=== PATIENT | female | born 1970 | race Hispanic/Latino ===

== ENCOUNTER 2016-08-20 20:21 | Emergency (ER) | payer MEDICARE ==
[2016-08-20 20:26] VITALS: BP 128/78; PULSE 88; RESP 18; TEMP 98.1; O2SAT 99
--- NOTE | 2016-08-20 21:48 | ED PDOC ---
Upper Extremity Pain/Injury Time Seen by Provider: 08/20/16 20:35 Chief Complaint (Nursing): Finger,Hand,&Wrist Chief Complaint (Provider): Right hand injury History Per: Patient History/Exam Limitations: no limitations Current Symptoms Are (Timing): Still Present Additional Complaint(s): Vale Smallwood, a 45 year old female, presents to the ED with an injury to her right hand. The patient states she was at storage unit when she hit her hand on a metal object and bruised her fingers. Past Medical History Reviewed: Historical Data, Nursing Documentation, Vital Signs Vital Signs: Last Vital Signs Temp 98.1 F 08/20/16 20:24 Pulse 88 08/20/16 20:24 Resp 18 08/20/16 20:24 BP 128/78 08/20/16 20:24 Pulse Ox 99 08/20/16 20:24 - Medical History PMH: No Chronic Diseases - Surgical History Surgical History: No Surg Hx - Family History Family History: States: Unknown Family Hx - Social History Current smoker - smoking cessation education provided: No Ex-Smoker (has not smoked in the last 12 months): No Alcohol: None Drugs: Denies - Immunization History Hx Tetanus Toxoid Vaccination: No Hx Influenza Vaccination: No Hx Pneumococcal Vaccination: No - Home Medications Home Medications: Ambulatory Orders Medication Instructions Recorded Ibuprofen [Motrin Tab] 800 mg PO Q6H PRN #20 tab 08/20/16 - Allergies Allergies/Adverse Reactions: Allergies Allergy/AdvReac Type Severity Reaction Status Date / Time codeine AdvReac Verified 08/13/15 17:24 "ALL NARCOTICS" AdvReac Uncoded 08/13/15 17:24 "PAIN KILLERS" AdvReac Uncoded 08/13/15 17:24 Review of Systems Musculoskeletal: Negative for: Hand Pain (Bruising to right hand\\) Physical Exam - Reviewed Nursing Documentation Reviewed: Yes Vital Signs Reviewed: Yes - Physical Exam Appears: Positive for: Non-toxic, No Acute Distress Skin: Positive for: Normal Color, Warm, Dry Eye Exam: Positive for: Normal appearance, EOMI, PERRL Extremity: Positive for: Normal ROM, Tenderness (4th and 5th metacarpal tenderness of the right hand.), Other (Bruising over 4th and 5th metacarpal). Negative for: Pedal Edema, Deformity, Swelling Neurologic/Psych: Positive for: Alert, Oriented, Gait - ECG O2 Sat by Pulse Oximetry: 99 (RA) Pulse Ox Interpretation: Normal Medical Decision Making Medical Decision Makin Initial Impression: 45 year old female presenting with a right hand injury Initial Plan: * Radiology Right Hand * Reevaluation X-ray: mildly displaced fracture of distal 5th metacarpal. Scribe Attestation Documented by Aliza Griffin acting as a scribe for Kinsey Norwood PA-C. Scribe Attestation All medical record entries made by the Scribe were at my direction and personally dictated by me. I have reviewed the chart and agree that the record accurately reflects my personal performance of the history, physical exam, medical decision making, and the department course for this patient. I have also personally directed, reviewed, and agree with the discharge instructions and disposition. Disposition - Clinical Impression Clinical Impression: Metacarpal bone fracture - Patient ED Disposition Is Patient to be Admitted: No Counseled Patient/Family Regarding: Diagnosis, Need For Followup, Rx Given - Disposition Referrals: [facility] [Outside] Disposition: Routine/Home Disposition Time: 22:44 Condition: GOOD Additional Instructions: Please follow-up with orthopedics. Prescriptions: Ibuprofen [Motrin Tab] 800 mg PO Q6H PRN #20 tab PRN Reason: Pain Instructions: Boxer Fracture (ED)
--- NOTE | 2016-08-21 14:14 | RAD ---
PROCEDURE: Right hand dated 08/20/2016 HISTORY: right hand injury COMPARISON: None. FINDINGS: BONES: Current study reveals a boxer fracture of the right 5th meta carpal with mild palmar and radial angulation of the distal fragment. There is mild overlying dorsal and ulnar soft tissue swelling. No other fractures are identified. JOINTS: Joint spaces preserved with no significant osteoarthritis. SOFT TISSUES: As above. No radiopaque foreign bodies OTHER FINDINGS: None. IMPRESSION: Boxer fracture right 5th metacarpal as above
== END 2016-08-20 23:03 | disposition home or self-care (01) ==
LOC: H.ER 20:21
DX: S62.306A Unspecified fracture of fifth metacarpal bone, right hand, initial encounter for closed fracture (principal); W22.8XXA Striking against or struck by other objects, initial encounter; Y92.89 Other specified places as the place of occurrence of the external cause

== ENCOUNTER 2016-08-22 19:38 | Emergency (ER) | payer MEDICARE ==
[2016-08-22 19:47] VITALS: BP 124/61; PULSE 90; RESP 17; TEMP 98.1; O2SAT 99
--- NOTE | 2016-08-22 20:59 | ED PDOC ---
Upper Extremity Pain/Injury Time Seen by Provider: 08/22/16 20:03 Chief Complaint (Nursing): Finger,Hand,&Wrist Chief Complaint (Provider): Right hand pain History Per: Patient History/Exam Limitations: no limitations Onset/Duration Of Symptoms: Days (2) Current Symptoms Are (Timing): Still Present Severity: Moderate Exacerbating Factor(s): Strenuous Use Of Affected Area Additional History Per: Patient Additional Complaint(s): The patient is a 45yo female, presents to ED for evaluation of right hand pain. Pt reports 2 days ago, she was diagnosed with a right boxer fracture and a splint was placed; states she is unable to keep the splint on as she is currently homeless and has to carry her belongings. Pt reports she removed the splint and noticed that her right hand was swollen and bruised; she denies putting her splint back on since then. Further reports she has a ring on her right 4th digit that she has had on for 10+ years and has not removed it. Pt with no other medical complaints. Against Medical Advice - AMA Patient Left Against Medical Advice: The patient declines admission to the hospital and wishes to leave the Emergency Department. This action is against my medical advice. This decision was made with informed refusal. The patient was told that admission to the hospital is necessary. Explanation of the reasons why were discussed. The risks of leaving were explained to the patient and include, but are not limited to, worsening of known or currently unknown conditions, permanent disability and from undiagnosed or untreated conditions. The patient has the capacity to make this informed decision and understands my explanation of the current medical problem and risks of leaving. The patient voluntarily accepts these risks and signed an AMA form documenting our conversation. The patient was given the opportunity to ask questions and reconsider. The patient was encouraged to return to the Emergency Department at any time for further care. Past Medical History Reviewed: Historical Data, Nursing Documentation, Vital Signs Vital Signs: Last Vital Signs Temp 98.1 F 08/22/16 19:44 Pulse 90 08/22/16 19:44 Resp 17 08/22/16 19:44 BP 124/61 08/22/16 19:44 Pulse Ox 99 08/22/16 19:44 - Medical History PMH: No Chronic Diseases - Family History Family History: States: Unknown Family Hx - Immunization History Hx Tetanus Toxoid Vaccination: No Hx Influenza Vaccination: No Hx Pneumococcal Vaccination: No - Home Medications Home Medications: Ambulatory Orders Medication Instructions Recorded Ibuprofen [Motrin Tab] 800 mg PO Q6H PRN #20 tab 08/20/16 - Allergies Allergies/Adverse Reactions: Allergies Allergy/AdvReac Type Severity Reaction Status Date / Time codeine AdvReac Verified 08/13/15 17:24 "ALL NARCOTICS" AdvReac Uncoded 08/13/15 17:24 "PAIN KILLERS" AdvReac Uncoded 08/13/15 17:24 Review of Systems ROS Statement: Except As Marked, All Systems Reviewed And Found Negative Musculoskeletal: Positive for: Hand Pain (right) Physical Exam - Reviewed Nursing Documentation Reviewed: Yes Vital Signs Reviewed: Yes - Physical Exam Appears: Positive for: Well, Non-toxic, No Acute Distress Head Exam: Positive for: ATRAUMATIC, NORMAL INSPECTION, NORMOCEPHALIC Skin: Positive for: Normal Color. Negative for: Rash Eye Exam: Positive for: Normal appearance Pulses-Radial (L): 2+ Pulses-Radial (R): 2+ Extremity: Positive for: Tenderness (minimal swelling and tendernes son right 5th MCP w/o deformity. distal senses intact.), Capillary Refill (< 2 seconds), Other (distal senses intact). Negative for: Deformity Neurologic/Psych: Positive for: Alert, Oriented. Negative for: Motor/Sensory Deficits - ECG O2 Sat by Pulse Oximetry: 99 (RA) Pulse Ox Interpretation: Normal Medical Decision Making Medical Decision Making: Time: 2014 Impression: Right hand boxer fracture Plan: -- Patient has elected to sign out AMA. Extensive discussion on need for ulnar gutter orthoglass splint was made and patient was informed ring would have to be removed. Patient refused to have ring removed and splint placed. Patient currently with aluminum volar splint with mariajose wrap from previous visit and reports she prefers to have that on. Patient was informed this does not protect or immobilize bone perfectly and is not optimal; can increase risk of malunion of fracture. Pt accepts risks. Aluminum volar splint placed and mariajose wrap placed around splint. Patient encouraged to follow up with [facility] and Orthopedist for further evaluation. Scribe Attestation: Documented by Geri Larry acting as a scribe for LEX Rodgers Provider Attestation: All medical record entries made by the Scribe were at my direction and personally dictated by me. I have reviewed the chart and agree that the record accurately reflects my personal performance of the history, physical exam, medical decision making, and the department course for this patient. I have also personally directed, reviewed, and agree with the discharge instructions and disposition. Disposition - Clinical Impression Clinical Impression: Hand fracture, Left against medical advice - Patient ED Disposition Is Patient to be Admitted: No - Disposition Referrals: [facility] [Outside] [facility] [Outside] Memo Jones MD [Staff Provider] - Disposition: Against Medical Advice Disposition Time: 21:00 Condition: STABLE Additional Instructions: KEEP HAND IMMOBILIZED IN SPLINT FOLLOW UP WITH ORTHOPEDIST TOMORROW WITHOUT FAIL Instructions: Against Medical Advice (ED), Boxer Fracture (ED)
== END 2016-08-22 21:17 | disposition left against medical advice (07) ==
LOC: H.ER 19:38
DX: S62.91XD Unspecified fracture of right hand, subsequent encounter for fracture with routine healing (principal); X58.XXXD Exposure to other specified factors, subsequent encounter; Z59.0 Homelessness; Z91.19 Patient's noncompliance with other medical treatment and regimen

== ENCOUNTER 2016-09-28 00:46 | Emergency (ER) | payer MEDICARE ==
[2016-09-28 01:55] VITALS: RESP 16; TEMP 97.1
--- NOTE | 2016-09-28 02:10 | ED PDOC ---
Lower Extremity Pain/Injury Time Seen by Provider: 09/28/16 01:47 Chief Complaint (Nursing): Lower Extremity Problem/Injury Chief Complaint (Provider): bilateral foot swelling History Per: Patient History/Exam Limitations: no limitations Onset/Duration Of Symptoms: Days Current Symptoms Are (Timing): Still Present Additional History Per: Patient Additional Complaint(s): 45 y/o female, no past medical history, presents with bilateral foot swelling x 3 weeks. Patient states she is homeless, has been doing a lot of walking trying to move things to storage. Patient notes cuts to the bottom of her foot from lack of daily cleaning and notes it painful to walk. Denies fever, nausea/ vomiting, chest pain, shortness of breath, palpitations, calf pain, recent travel. Past Medical History Reviewed: Historical Data, Nursing Documentation, Vital Signs Vital Signs: Last Vital Signs Temp 97.1 F L 09/28/16 01:52 Pulse 70 09/28/16 01:52 Resp 16 09/28/16 01:52 BP 116/71 09/28/16 01:52 Pulse Ox 99 09/28/16 01:52 - Medical History PMH: No Chronic Diseases - Surgical History Surgical History: No Surg Hx - Family History Family History: States: Unknown Family Hx - Living Arrangements Living Arrangements: Alone - Social History Current smoker - smoking cessation education provided: Yes Alcohol: None Drugs: Denies - Immunization History Hx Tetanus Toxoid Vaccination: No Hx Influenza Vaccination: No Hx Pneumococcal Vaccination: No - Home Medications Home Medications: Ambulatory Orders Medication Instructions Recorded No Known Home Med 09/28/16 - Allergies Allergies/Adverse Reactions: Allergies Allergy/AdvReac Type Severity Reaction Status Date / Time codeine AdvReac Verified 08/13/15 17:24 "ALL NARCOTICS" AdvReac Uncoded 08/13/15 17:24 "PAIN KILLERS" AdvReac Uncoded 08/13/15 17:24 Wells Criteria for PE - Wells Criteria for Pulmonary Embolism Clinical Signs and Symptoms of DVT: No P.E is #1 Diagnosis, or Equally Likely: No Heart Rate >100: No Immobilization at least 3 days;Surgery previous 4 weeks: No Previous, objectively diagnosed PE or DVT: No Hemoptysis: No Malignancy w/treatment within 6 months, or palliative: No Total Score: 0 Review of Systems ROS Statement: Except As Marked, All Systems Reviewed And Found Negative Musculoskeletal: Positive for: Foot Pain (/swelling) Physical Exam - Reviewed Nursing Documentation Reviewed: Yes Vital Signs Reviewed: Yes - Physical Exam Appears: Positive for: Well, Non-toxic, No Acute Distress (sleeping) Head Exam: Positive for: ATRAUMATIC, NORMAL INSPECTION, NORMOCEPHALIC Skin: Positive for: Normal Color Eye Exam: Positive for: Normal appearance ENT: Positive for: Normal ENT Inspection Cardiovascular/Chest: Positive for: Regular Rate, Rhythm Respiratory: Positive for: Normal Breath Sounds Gastrointestinal/Abdominal: Positive for: Normal Exam Back: Positive for: Normal Inspection Extremity: Positive for: Normal ROM, Pedal Edema (bilateral, L>R. Dried/cracked feet bilateral plantar feet; no drainage, erythema, or temp change noted. ) Neurologic/Psych: Positive for: Alert, Oriented. Negative for: Motor/Sensory Deficits - Laboratory Results Result Diagrams: 09/28/16 02:21 09/28/16 02:21 - ECG O2 Sat by Pulse Oximetry: 99 - Progress ED Course And Treament: labs Patient feet soaked in NS, betadine Patient educated on findings, discharged with instructions to follow up PMD 2-3 days. Advised elevating legs at rest. Return to ED for worsening/concerning symptoms. Disposition - Clinical Impression Clinical Impression: Lower extremity edema - Patient ED Disposition Is Patient to be Admitted: No Counseled Patient/Family Regarding: Studies Performed, Diagnosis, Need For Followup - Disposition Referrals: [facility] [Outside] Disposition: Routine/Home Disposition Time: 03:45 Condition: GOOD Instructions: Leg Edema (ED)
[2016-09-28] MEDS ORDERED: Povidone Iodine Topical 10% Sol ONE (02:13)
[2016-09-28 02:23] LABS: BASO # 0.1 K/uL (0.0-0.2); BASO % 0.9 % (0.0-2.0); EOS # 0.3 K/uL (0.0-0.7); EOS % 2.8 % (0.0-4.0); HEMOGLOBIN 12.6 g/dL (12.0-16.0); MEAN CELL VOLUME 94.1 fl (81.0-99.0); MEAN CORPUSCULAR HEMOGLOBIN 31.4 pg (27.0-31.0); MEAN CORPUSCULAR HGB CONC 33.3 g/dL (33.0-37.0); MEAN PLATELET VOLUME 6.7 fl (7.2-11.7); MONO # 0.6 K/uL (0.0-0.8); MONO % 5.5 % (0.0-10.0); NEUT # 7.1 K/uL (1.8-7.0); NEUT % 63.8 % (50.0-75.0); RBC 4.01 Mil/uL (3.80-5.20); RED CELL DISTRIBUTION WIDTH 13.5 % (11.5-14.5); WHITE BLOOD COUNT 11.1 K/uL (4.8-10.8)
[2016-09-28] MEDS ORDERED: Povidone Iodine Topical 10% Sol TOP ONE (02:24)
[2016-09-28 02:31] LABS: ALB/GLOB RATIO 1.3 (1.0-2.1); ALBUMIN 3.9 g/dL (3.5-5.0); ALT/SGPT 41 U/L (9-52); AST/SGOT 20 U/L (14-36); BLOOD UREA NITROGEN 20 mg/dl (7-17); GFR AFRICAN-AMERICAN > 60; GFR NON-AFRICAN AMERICAN > 60
[2016-09-28 02:40] LABS: B-TYPE NATRIURETIC PEPTIDE 30.5 pg/ml (0-450)
[2016-09-28 05:23] VITALS: BP 115/75; PULSE 72; O2SAT 98
== END 2016-09-28 05:57 | disposition home or self-care (01) ==
LOC: H.ER 00:46
DX: R60.0 Localized edema (principal); Z59.0 Homelessness; F17.200 Nicotine dependence, unspecified, uncomplicated

== ENCOUNTER 2017-01-23 11:27 | Emergency (ER) | payer MEDICARE ==
--- NOTE | 2017-01-23 11:43 | ED PDOC ---
HPI: General Adult Time Seen by Provider: 01/23/17 11:43 Chief Complaint (Provider): head injury History Per: Patient Additional Complaint(s): 46-year-old female with no past medical history presents to emergency department with headache and back pain status post slip and fall. Patient states she slipped on ice while walking into a storage unit this morning. She felt woozy and believes that she "almost passed out" after head injury. She complains of blurry vision, headache and dizziness upon arrival with slight nausea but no vomiting. Patient also has lower back pain. She has been able to walk since time of fall. Past Medical History Reviewed: Historical Data, Nursing Documentation, Vital Signs Vital Signs: Last Vital Signs Temp 98.1 F 01/23/17 11:44 Pulse 79 01/23/17 11:44 Resp 17 01/23/17 11:44 BP 110/65 01/23/17 11:44 Pulse Ox 96 01/23/17 12:05 - Medical History PMH: No Chronic Diseases - Surgical History Surgical History: No Surg Hx - Family History Family History: States: No Known Family Hx - Living Arrangements Living Arrangements: Alone - Social History Current smoker - smoking cessation education provided: Yes (1/2 ppd) Alcohol: None Drugs: Denies - Home Medications Home Medications: Ambulatory Orders Medication Instructions Recorded No Known Home Med 09/28/16 - Allergies Allergies/Adverse Reactions: Allergies Allergy/AdvReac Type Severity Reaction Status Date / Time codeine AdvReac Verified 08/13/15 17:24 "ALL NARCOTICS" AdvReac Uncoded 08/13/15 17:24 "PAIN KILLERS" AdvReac Uncoded 08/13/15 17:24 Review of Systems ROS Statement: Except As Marked, All Systems Reviewed And Found Negative Musculoskeletal: Positive for: Back Pain, Other (s/p fall) Neurological: Positive for: Other (head injury with no LOC s/p fall) Physical Exam - Reviewed Nursing Documentation Reviewed: Yes Vital Signs Reviewed: Yes - Physical Exam Appears: Positive for: Well, Non-toxic, No Acute Distress Head Exam: Positive for: ATRAUMATIC, NORMAL INSPECTION Skin: Negative for: Rash Eye Exam: Positive for: Normal appearance Neck: Positive for: Normal, Painless ROM Cardiovascular/Chest: Positive for: Regular Rate, Rhythm Respiratory: Positive for: Normal Breath Sounds Back: Positive for: Vertebral Tenderness (Mild tenderness along the midline of the lumbar spine with no step-off, negative bilateral straight leg raise). Negative for: L CVA Tenderness, R CVA Tenderness Extremity: Positive for: Normal ROM Neurologic/Psych: Positive for: Alert, Oriented, Gait (steady) - Laboratory Results Urine POC: Negative - ECG O2 Sat by Pulse Oximetry: 96 Pulse Ox Interpretation: Normal - Other Rad CT head X-Ray: Read By Radiologist X-Ray Interpretation: no acute finding L/S Spine X-ray X-Ray: Interpreted by Me, Viewed By Me X-Ray Interpretation: no fx, no dis Medical Decision Making Medical Decision Makin46 year old female with headache and back pain status post fall Plan: test CT head L/S Spine x-ray PO tylenol Patient is aware of all diagnostic testing results, all questions answered. Advised Tylenol for pain as needed. Patient was instructed to follow-up with her primary doctor or with clinic. Disposition - Clinical Impression Clinical Impression: Back strain, Head injury, Accidental fall - Patient ED Disposition Is Patient to be Admitted: No Counseled Patient/Family Regarding: Studies Performed, Diagnosis, Need For Followup - Disposition Referrals: [facility] [Outside] Disposition: Routine/Home Disposition Time: 14:19 Condition: STABLE Additional Instructions: Take Tylenol as needed for pain. Follow up with primary doctor or with clinic in 2-3 days. Instructions: Head Injury (ED), Back Pain (ED)
[2017-01-23 11:44] VITALS: BMI 21.7
[2017-01-23 11:47] VITALS: BP 110/65; PULSE 79; RESP 17; TEMP 98.1; O2SAT 96
--- NOTE | 2017-01-23 14:22 | CT ---
PROCEDURE: CT HEAD WITHOUT CONTRAST. HISTORY: trauma COMPARISON: None available. TECHNIQUE: Axial computed tomography images were obtained through the head/brain without intravenous contrast. Radiation dose: Total exam DLP = mGy-cm. This CT exam was performed using one or more of the following dose reduction techniques: Automated exposure control, adjustment of the mA and/or kV according to patient size, and/or use of iterative reconstruction technique. FINDINGS: HEMORRHAGE: No intracranial hemorrhage. BRAIN: No mass effect or edema. No atrophy or chronic microvascular ischemic changes. VENTRICLES: Unremarkable. No hydrocephalus. CALVARIUM: Unremarkable. PARANASAL SINUSES: Unremarkable as visualized. No significant inflammatory changes. MASTOID AIR CELLS: Unremarkable as visualized. No inflammatory changes. OTHER FINDINGS: None. IMPRESSION: Normal CT of the Head.
--- NOTE | 2017-01-23 15:48 | RAD ---
PROCEDURE: Radiographs of the Lumbar Spine. HISTORY: trauma COMPARISON: No prior. FINDINGS: BONES: Normal alignment. No listhesis. No fracture. DISC SPACES: Unremarkable. OTHER FINDINGS: None. IMPRESSION: Unremarkable radiographs of the lumbar spine.
== END 2017-01-23 14:51 | disposition home or self-care (01) ==
LOC: H.ER 11:27
DX: S09.90XA Unspecified injury of head, initial encounter (principal); S39.012A Strain of muscle, fascia and tendon of lower back, initial encounter; W01.0XXA Fall on same level from slipping, tripping and stumbling without subsequent striking against object, initial encounter; Y92.89 Other specified places as the place of occurrence of the external cause

== ENCOUNTER 2018-05-24 02:58 | Emergency (ER) | payer MEDICARE ==
[2018-05-24 02:58] VITALS: BMI 21.7
[2018-05-24 03:41] VITALS: O2SAT 95
--- NOTE | 2018-05-24 03:52 | ED PDOC ---
HPI: CCC, URI, Sore Throat Time Seen by Provider: 05/24/18 03:45 Chief Complaint (Nursing): Cough, Cold, Congestion Chief Complaint (Provider): cough, congestion History Per: Patient History/Exam Limitations: no limitations Onset/Duration Of Symptoms: Days (3) Additional Complaint(s): 47 y/o female presents for evaluation of cough and congestion x 3 days. Associated subjective fevers. Denies headache, ear pain, nausea/vomiting, chest pain, shortness of breath, palpitations, abdominal pain, changes in bowel movements, recent travel, sick contacts. Past Medical History Reviewed: Historical Data, Nursing Documentation, Vital Signs Vital Signs: Last Vital Signs Temp 100.0 F H 05/24/18 03:32 Pulse 103 H 05/24/18 03:32 Resp 18 05/24/18 03:32 BP 135/88 05/24/18 03:32 Pulse Ox 95 05/24/18 03:32 - Medical History PMH: No Chronic Diseases - Surgical History Surgical History: No Surg Hx - Family History Family History: States: Unknown Family Hx - Immunization History Hx Tetanus Toxoid Vaccination: No Hx Influenza Vaccination: No Hx Pneumococcal Vaccination: No - Home Medications Home Medications: Ambulatory Orders Medication Instructions Recorded Sulfamethoxazole/Trimethoprim 1 tab PO BID #14 tab 09/18/17 [Bactrim DS 800 mg-160 mg] Azithromycin [Zithromax] 250 mg PO DAILY #1 packet 05/24/18 - Allergies Allergies/Adverse Reactions: Allergies Allergy/AdvReac Type Severity Reaction Status Date / Time codeine AdvReac Verified 09/18/17 17:38 steriods Allergy Uncoded 09/18/17 17:38 "ALL NARCOTICS" AdvReac Uncoded 09/18/17 17:38 "PAIN KILLERS" AdvReac Uncoded 09/18/17 17:38 Review of Systems ROS Statement: Except As Marked, All Systems Reviewed And Found Negative Constitutional: Positive for: Fever, Chills ENT: Positive for: Nose Congestion Respiratory: Positive for: Cough Physical Exam - Reviewed Nursing Documentation Reviewed: Yes Vital Signs Reviewed: Yes - Physical Exam Appears: Positive for: Well, Non-toxic, No Acute Distress Head Exam: Positive for: ATRAUMATIC, NORMAL INSPECTION, NORMOCEPHALIC Skin: Positive for: Normal Color Eye Exam: Positive for: Normal appearance ENT: Positive for: Nasal Congestion Cardiovascular/Chest: Positive for: Regular Rate, Rhythm Respiratory: Positive for: Normal Breath Sounds Gastrointestinal/Abdominal: Positive for: Normal Exam Back: Positive for: Normal Inspection Extremity: Positive for: Normal ROM Neurological/Psych: Positive for: Awake, Alert, Oriented (x3) - ECG O2 Sat by Pulse Oximetry: 95 - Progress ED Course And Treament: Patient refusing chest xray; states when she gets these symptoms a Zpak helps her; advised likely viral but patient still insistent on antibiotic Patient was advised to follow up with PMD within 2-3 days Rx Zpak provided Strict return precautions given Disposition - Clinical Impression Clinical Impression: Bronchitis - Patient ED Disposition Is Patient to be Admitted: No Counseled Patient/Family Regarding: Studies Performed, Diagnosis, Need For Followup, Rx Given, Smoking Cessation - Disposition Referrals: [facility] [Outside] Disposition: Routine/Home Disposition Time: 04:43 Condition: IMPROVED Prescriptions: Azithromycin [Zithromax] 250 mg PO DAILY #1 packet Instructions: Acute Bronchitis
[2018-05-24 04:49] VITALS: BP 120/76; PULSE 75; TEMP 99.4
[2018-05-24 05:34] VITALS: RESP 18
== END 2018-05-24 05:20 | disposition home or self-care (01) ==
LOC: H.ER 02:58
DX: J40 Bronchitis, not specified as acute or chronic (principal); Z88.5 Allergy status to narcotic agent